=== PATIENT | female | born 1970 | race Caucasian/White ===

== ENCOUNTER → 2017-02-28 11:18 | Emergency (ER) | payer MEDICARE, OTHER ==
[~2017-02-28] VITALS: Ht 162.6 cm; Wt 78.0 kg
[~2017-02-28 11:18] MED LIST: OXCA150T3 PO; QUET100T PO
[2017-02-28 11:30] VITALS: Ht 162.6 cm; Wt 78.0 kg
--- NOTE | 2017-02-28 12:35 | ERD ---
ER Documentation Chief Complaint Date/Time DATE: 02/28/17 TIME: 12:32 Chief Complaint med refill gerd meds and psychiatric meds seroquil HPI This 46-year-old female presents to the ER for refill of psychiatric meds. She was request both Seroquel and Trileptal. She has an appointment on Thursday and [facility] to see her PCP. She denies suicidal homicidal ideations. States that she feels well but could use her mood stabilizers. She does not have a seizure disorder. ROS All systems reviewed and are negative except as per history of present illness. Medications Home Meds Active Scripts Oxcarbazepine* (Trileptal*) 150 Mg Tablet, 150 MG PO BID, #6 TAB Prov:PATRICIA BALLARD DO 02/28/17 Quetiapine Fumarate* (Seroquel*) 100 Mg Tablet, 100 MG PO HS, #4 TAB Prov:PATRICIA BALLARD DO 02/28/17 Physical Exam Vitals Vital Signs Date Time Temp Pulse Resp B/P Pulse Ox O2 Delivery O2 Flow Rate FiO2 02/28/17 11:30 98.5 94 18 155/88 97 Physical Exam Const: [] No distress Eyes: Normal Conjunctiva ENT: Normal External Ears, Nose and Mouth. Neck: Full range of motion..~ No meningismus. Skin: No petechiae or rashes Neur: Awake and alert and oriented 3, no focal deficits Psych: Normal Mood and Affect Procedures/MDM Simple medication refill in both physically and mentally stable patient with no current medical complaints. Discharging with a few days of both Seroquel and Trileptal which be more than adequate to make it to her appointment on Thursday which she is already scheduled. Departure Diagnosis: Primary Impression: Encounter for medication refill Condition: Stable Patient Instructions: Taking Medicine Safely Additional Instructions: Call your primary care doctor TOMORROW for an appointment during the next 1-2 days.See the doctor sooner or return here if your condition worsens before your appointment time. PATRICIA BALLARD DO Feb 28, 2017 12:34
== END | disposition home or self-care (01) ==
LOC: E/R 11:18
DX: Z76.0 Encounter for issue of repeat prescription (principal)
CPT/HCPCS: 99281